=== PATIENT | female | born 1980 | race Asian ===

== ENCOUNTER 2016-06-25 23:02 | Emergency (ER) | payer OTHER ==
[2016-06-26] MEDS ORDERED: POTASSIUM BICARB 25 MEQ TABLET PO STA (02:26)
[2016-06-26] MEDS ORDERED: POTASSIUM BICARB 25 MEQ TABLET PO ONE (02:28)
== END 2016-06-26 02:34 | disposition home or self-care (01) ==
DX: R07.9 Chest pain, unspecified (principal); E87.6 Hypokalemia
CPT/HCPCS: 36415; 80048; 84484; 85025; 93005; 93010; 99283; 99284; A9270